=== PATIENT | female | born 1945 | race Caucasian/White ===

== ENCOUNTER 2024-09-13 10:07 | Observation (INO) ==
[2024-09-13 11:18] LABS: Basophils # (auto) 0.02 K/uL (0.00-0.20); Basophils % (auto) 0.2 %; Eosinophils # (auto) 0.02 K/uL (0.00-0.50); Eosinophils % (auto) 0.2 %; Hematocrit (blood only) 41.3 % (37.0-47.0); Hemoglobin 14.1 g/dl (12.0-16.0); Immature Granulocytes # (auto) 0.02 K/uL (0.01-0.20); Immature Granulocytes % (auto) 0.2 %; Lymphocytes % (auto) 17.4 %; Mean Corpuscular Hemoglobin 31.3 pg (25.0-34.0); Mean Corpuscular Hgb Conc 34.1 g/dL (32.0-36.0); Mean Corpuscular Volume 91.6 fL (80.0-100.0); Mean Platelet Volume 9.9 fL (9.4-12.4); Monocytes # (auto) 0.84 K/uL (0.11-0.59); Monocytes % (auto) 9.7 %; Neutrophils # (auto) 6.22 K/uL (1.40-6.50); Neutrophils % (auto) 72.3 %; Platelet Count 193 K/uL (130-400); RDW Coefficient of Variation 13.1 % (11.5-14.5); RDW Standard Deviation 44.2 fL (36.4-46.3); Red Blood Count 4.51 M/uL (4.20-5.40); White Blood Count 8.62 K/ul (4.8-10.8)
[2024-09-13 11:32] LABS: BUN Creatinine Ratio 13.6 (10-20); Bilirubin Direct 0.1 mg/dl (0-0.2); Bilirubin,Total 0.6 mg/dl (0.2-1.0); Calcium 9.5 mg/dl (8.6-10.3); Creatinine Clr Calc Pharmacy 22.9 ml/min; Potassium 3.8 mmol/L (3.5-5.1); Total Protein 7.3 gm/dl (6.0-8.3)
[2024-09-13 11:47] LABS: INR 0.9 (0.9-1.1); Partial Thromboplastin Ratio 0.9; Partial Thromboplastin Time 23 Seconds (21-31); Prothrombin Time 10.3 Seconds (9.0-12.0)
[2024-09-13] MEDS: OPTIRAY 320 100ml IV ONE (12:19)
[2024-09-13] MEDS: SODIUM CHLORIDE 0.9% 500 ML IV SCH (12:34)
[2024-09-13] MEDS: PANTOprazole 80 MG in DEXTROSE 5% 100 ML IV ONE (12:34)
--- NOTE | 2024-09-13 12:46 | CT Scan Report ---
ABDOMEN AND PELVIS CT WITH IV CONTRAST CT DOSE: 360.48 mGy.cm HISTORY: abd pain TECHNIQUE: Multiaxial CT images of the abdomen and pelvis were performed following the IV administrat ion of 90 cc of Optiray, A dose lowering technique was utilized adhering to the principles of ALARA. COMPARISON STUDY: None FINDINGS: There is a moderate hiatal hernia. There is a 6 mm pulmonary nodule lateral left lung base. ABDOMEN: Liver, gallbladder, spleen, pancreas, and adrenal glands are unremarkable. There are a few s mall cysts at the kidneys. There is no hydronephrosis. There are scattered atherosclerotic calcificat ions. No abdominal aortic aneurysm. Pelvis: Uterus is absent. No adnexal mass. Urinary bladder is nondistended. There is sigmoid divertic ulosis. No acute diverticulitis. There is diffuse wall thickening and inflammation at the left colon. No other bowel and summation or obstruction. Normal appendix. No free fluid, free air, or abscess. N o enlarged adenopathy. Osseous structures: There is mild lumbar degenerative disc disease with grade 1 anterolisthesis of L4 on 5 and L5 on S1. There is moderate chronic appearing height loss at the L1 vertebral body. No acut e osseous finding seen. IMPRESSION: 1. Diffuse left-sided colitis. No other acute findings seen. 2. Left lung base pulmonary nodule. Follow-up chest CT is suggested. ACT 112: Positive. There are findings on this exam that require communication between the performing entity and the patient following Patient Test Result Information Act ([place] Act 112) guidelines. The above report was generated using voice recognition software. It may contain grammatical, syntax o r spelling errors. Electronically signed by: Aníbal Carballo M.D. 09/13/2024 12:43 PM
[2024-09-13] MEDS: PANTOprazole 40 MG in DEXTROSE 5% MINI-B 100 ML IV SCH (13:01)
--- NOTE | 2024-09-13 13:14 | History & Physical Report ---
"Date of Service September 13, 2024 History of Present Illness Chief Complaint: rectal bleed Primary Care Provider: Magdalene Bernard MD Aby is a 79F with a PMHx of mild cognitive impairments, Internal hemorrhoid , CKD3, HTN, HLD and gout who presents with rectal bleeding. States yesterday afternoon sudden onset of sick feeling, went to the bathroom and had vomiting and diarrhea. Reports vomiting was dark brown. Stool was also dark, like black and then after multiple bouts of diarrhea she was passing clots. Meal before this was roast beef, gravy, potatoes and coleslaw. After this episode, she reports a rash all over her body neck/stomach/groin - that was very itchy, but completely resolved with benadryl. She reports chronic constipation and hx of treatment to her internal hemorrhoids. has not taken Pepto bismol recently or iron supplements. ED course: Protoninx 80mg IV followed by drip NSS 500cc Aby is a 79F with a PMHx of mild cognitive impairments, Internal hemorrhoid, CKD3, HTN, HLD and gout who presents with rectal bleeding. Initial evaluation showed stable hgb at 14.[address] A/P showed left sided colitis. # Possible GI Bleed | Colitis Suspect infectious vs ischemic Stool studies / C.diff / fecal occult, ordered, pending Strict NPO with IVF resuscitation Continue protonix drip started in the ED check orthostatic vital signs GI consulted Recheck hgb this evening AM CBC and BMP # CKD3 Cr slightly above baseline IVFs as above AM BMP # HTN | HLD Hold Aspirin Statin held while NPO continue atenolol and amlodipine #Lung nodule - seen on CT A/P - recommend chest CT, this can be done outpatient #Cognitive Impairment - Memantine held while NPO Dispo: admit to med/surg DVT proh: SCDs CODE STATUS: DNR/DNI daughter updated at bedside Allergies Allergy/AdvReac Type Severity Reaction Status Date / Time No Known Allergies Allergy Verified 09/11/24 16:02 Home Medications Medication Instructions Recorded Confirmed Type aspirin 81 mg tablet,delayed 81 mg PO DAILY 06/03/23 09/13/24 History release calcium carbonate 600 mg PO DAILY 06/03/23 09/13/24 History cholecalciferol (vitamin D3) 25 25 mcg PO DAILY 06/03/23 09/13/24 History mcg (1,000 unit) capsule omega-3s 350 ea-orz-hjj-other 1 cap PO DAILY 06/03/23 09/13/24 History [id number]-hdrl oil 600 mg capsule (Fish Oil) denosumab 60 mg/mL subcutaneous 60 mg subcut Q6MO #1 mL 01/23/24 09/13/24 Rx syringe (Prolia) meclizine 25 mg tablet 25 mg PO BID #30 tabs 03/22/24 09/13/24 Rx amlodipine 5 mg tablet 5 mg PO BID #180 tabs 08/10/24 09/13/24 Rx atenolol 100 mg tablet 100 mg PO DAILY #90 tabs 08/10/24 09/13/24 Rx pravastatin 20 mg tablet 20 mg PO DAILY #90 tabs 08/10/24 09/13/24 Rx memantine 5 mg tablet 0 mg PO BID 09/13/24 09/13/24 History pantoprazole 40 mg tablet,delayed 40 mg PO BID #28 tabs 09/15/24 Rx release Past Med/Surg History Problem List (Updated 09/15/24 @ 06:28 by Yann Salazar MD) Chronic kidney disease, stage 3a PAOLO (acute kidney injury) Colitis GI bleed (Acute) Mild cognitive impairment Systolic ejection murmur Internal hemorrhoid Stage III chronic kidney disease HTN (hypertension) HLD (hyperlipidemia) Osteoporosis Gout Left bundle branch block Medical History History of paroxysmal supraventricular tachycardia Family History Mother Breast cancer Hypertension Myocardial infarction Sister Breast cancer Cervical cancer Brother Lung cancer Bladder cancer Denies family history of Ovarian cancer Prostate cancer Colorectal cancer Stroke Social History Smoking Status: Never smoker Second Hand Exposure: No; Do You Dip or Chew Tobacco: No; Hx Alcohol Use: No Hx Substance Use: No Preferred Language: Maltese Communication Ability: Effective Instructional Assistant Required: No Beliefs That Will Affect Care: None marital status: / Current Living Situation: Family Current Living Situation Comment: Lives with daughter 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 I agree with the yao components of her admit documentation. 79yo female with mild cognitive impairment, internal hemorrhoids, CKD stage3, HTN, Hyperlipidemia and gout who presents from home with <24 hours of vomiting, left-sided abd pain, ?melena stool, and then the development of BRBPR with clots. At the time of my assessment she was resting comfortably in bed; daughter at bedside. Abdominal pain has improved since arrival to ER, and no further vomiting. ER provider started her on PPI drip in the event she had UGI bleeding (in addition to lower GI bleeding). Patient denies any recent antibiotic usage. Denies any h/o tobacco use. PMH/PSH/allergies/meds/sochx/famhx - reviewed VSS, afebrile gen - nontoxic in appearance, comfortable/NAD, awake, alert neck - no JVD mouth - MMM heart - RRR, s1 s2, no murmur lungs - CTA b/l, minimal scant dry rales R base abd - soft, ND, BS+, tender left side of abdomen but no peritoneal signs ext - no edema, pulses 2+ b/l skin - no pallor psych - awake, alert, oriented; despite MCI her cognition was fairly good labs reviewed imaging reviewed A/P: 1. left-sided colitis - ischemic vs infectious. Favor former. No diverticulitis on CT. No h/o IBD. -stool Biofire and stool for c diff -NPO except meds -IV fluids -pain meds prn -GI consultation requested for their opinion -if this turns out to be ischemic consider mesenteric dopplers -H/H are stable at this time, but plan to repeat CBC later today to ensure stability -ischemic colitis risk factors - HTN, age, hyperlipidemia 2. lower GI bleeding - 2nd to #1 3. ??upper GI bleeding (dark stool reported by patient) - I have little suspicion she is having active UGI bleed, but reasonable to cont PPI drip instituted in ER until her CBC trend is seen and rest of w/u ensues 4. HTN - BPs are actually normal or low-normal; hold amlodipine, cont atenolol. daughter updated at bedside at time of admission Yann Salazar MD PG Care Time/CCT Total # of Minutes Spent Total Time Spent with Patient: Total time spent is greater than 50% in coordination of care (as documented) at patient's floor/unit and/or counseling patient: Coding Level of Care Code 60221 INT INP/OBS CARE 3MIN"
[2024-09-13] MEDS ORDERED: ONDANSETRON INJ 2 MG/ML 2 ML VIAL IV PRN (16:47)
[2024-09-13] MEDS ORDERED: ACETAMINOPHEN 1,000 MG/100 ML VIAL IV PRN (16:47)
--- NOTE | 2024-09-13 17:10 | Emergency Department Note ---
History of Present Illness General Chief complaint: Rectal Bleed Stated complaint: RECTAL BLEED Time Seen by Provider: 09/13/24 11:05 Source: patient and family (Daughter at bedside) History of Present Illness Provider Complaint: + nausea, + vomiting, + diarrhea and + abdominal pain Onset (ago): day(s) 1 Description of Vomiting: + other (Dark vomit not truly black but very very dark) Description of Diarrhea: + blood-streaked and + bloody (bright red) Associated Abdominal Pain: Yes Location of pain: + diffuse Maximum Pain Intensity: 5 Current Pain Intensity: 5 Quality: + cramping and + aching Pain Consistency: + intermittent Relieved By: + none Exacerbated By: + bowel movement and + vomiting Context: + possible food poisoning (Occurred after eating at a restaurant last night); no sick contacts, no recent surgery/procedure, no history of abdominal surgery, no alcohol abuse, no trauma, no anticoagulant use or no self induced Associated symptoms: + other (Rash over the anterior abdominal wall which the daughter at bedside states she gave the patient Benadryl for and then the rash resolved.); no myalgias, no fever/chills, no malaise, no dysuria or no weakness Home Medications Medication Instructions Recorded Confirmed Type aspirin 81 mg tablet,delayed 81 mg PO DAILY 06/03/23 09/13/24 History release calcium carbonate 600 mg PO DAILY 06/03/23 09/13/24 History cholecalciferol (vitamin D3) 25 25 mcg PO DAILY 06/03/23 09/13/24 History mcg (1,000 unit) capsule omega-3s 350 zl-dfa-yhw-other 1 cap PO DAILY 06/03/23 09/13/24 History [id number] oil 600 mg capsule (Fish Oil) denosumab 60 mg/mL subcutaneous 60 mg subcut Q6MO #1 mL 01/23/24 09/13/24 Rx syringe (Prolia) meclizine 25 mg tablet 25 mg PO BID #30 tabs 03/22/24 09/13/24 Rx amlodipine 5 mg tablet 5 mg PO BID #180 tabs 08/10/24 09/13/24 Rx atenolol 100 mg tablet 100 mg PO DAILY #90 tabs 08/10/24 09/13/24 Rx pravastatin 20 mg tablet 20 mg PO DAILY #90 tabs 08/10/24 09/13/24 Rx memantine 5 mg tablet 0 mg PO BID 09/13/24 09/13/24 History Allergies Allergy/AdvReac Type Severity Reaction Status Date / Time No Known Allergies Allergy Verified 09/11/24 16:02 Past Med/Surg History Problem List (Updated 09/13/24 @ 17:10 by Osvaldo Martinez MD) GI bleed (Acute) Mild cognitive impairment Systolic ejection murmur Internal hemorrhoid Stage III chronic kidney disease HTN (hypertension) HLD (hyperlipidemia) Osteoporosis Gout Left bundle branch block Medical History History of paroxysmal supraventricular tachycardia Family History Mother Breast cancer Hypertension Myocardial infarction Sister Breast cancer Cervical cancer Brother Lung cancer Bladder cancer Denies family history of Ovarian cancer Prostate cancer Colorectal cancer Stroke Social History Smoking Status: Never smoker Second Hand Exposure: No; Do You Dip or Chew Tobacco: No; Hx Alcohol Use: Yes Alcohol Intake Frequency: Monthly or Less Hx Substance Use: No Preferred Language: Serbian Beliefs That Will Affect Care: None marital status: / Current Living Situation: Family Current Living Situation Comment: Lives with daughter 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 Feels Safe at Home: Yes Childhood Exposure to Second-Hand Smoke: No Diet: regular caffeine: Yes Dental Care, Regularly: No Seatbelt Use: always Sunscreen Use: No Assistive Devices: Glasses Physical Exam 2 Vital Signs: Vital Signs - 24 hr 09/13/24 10:19 09/13/24 12:30 09/13/24 14:00 Temperature 36.7 C Temperature Source Temporal Artery Sc an Pulse Rate 83 71 Pulse Rate [Apical ] 68 Respiratory Rate 14 20 18 Blood Pressure 116/77 130/81 Blood Pressure [Le ft Arm] 131/77 Blood Pressure Yelena n 90 97 Blood Pressure Yelena n [Left Arm] 95 Pulse Oximetry 93 94 92 Oxygen Delivery Me thod Room Air Room Air Sepsis New/Unexpla ined Change in Men tommie Status No Sepsis Action Take n by Nursing No Action Required 09/13/24 15:00 09/13/24 15:52 Temperature Temperature Source Pulse Rate 73 Pulse Rate [Apical ] 66 Respiratory Rate 16 Blood Pressure Blood Pressure [Le ft Arm] 121/73 Blood Pressure Yelena n Blood Pressure Yelena n [Left Arm] 89 Pulse Oximetry 93 Oxygen Delivery Me thod Room Air Sepsis New/Unexpla ined Change in Men tommie Status Sepsis Action Take n by Nursing Physical Exam: Physical Exam GENERAL: oriented to person, place, and time. appears well-developed and well- nourished. HENT: Exam performed. - Head: Normocephalic and atraumatic. EYES: Conjunctivae and EOM are normal. Right eye exhibits no discharge. Left eye exhibits no discharge. No scleral icterus. NECK: Normal range of motion. Neck supple. No JVD present. CV: Normal rate, regular rhythm, normal heart sounds and intact distal pulses. There is no peripheral edema. Palpable radial pulses bue. PULM/CHEST: Effort normal and breath sounds normal. No respiratory distress. No stridor. no wheezes. no rales. ABD: The abdomen is soft. There is diffuse tenderness to palpation. Rectal: Performed with female nursing temperature inspector Tabatha at bedside. Melanotic stool that is Hemoccult positive. NEURO: Motor and sensation grossly intact. SKIN: Skin is warm and dry. He is not diaphoretic. No rash. PSYCH: normal mood and affect. Behavior is normal. Judgment and thought content normal. Course Course 1105: The patient was evaluated in room B10. A complete history and physical exam was performed Cardiac monitoring: An order was placed for continuous cardiac monitoring. The monitor shows a rate of 80 with sinus rhythm interpreted by me Patient be turned on Protonix bolus and drip given her Hemoccult positive stool and her dark vomit that she states she had yesterday. 1320: Vital signs stable. Labs are unremarkable. Imaging shows colitis. Patient unable to give stool sample. Patient will be admitted to the hospitalist team for GI bleed. Administered Medications Sodium Chloride (Nss) 500 mls @ 80 mls/hr IV .Q6H15M [facility] Stop: 09/13/24 17:44 Last Infusion: 09/13/24 15:00 Dose: Infused Documented By: Admin: 09/13/24 12:34 Dose: 80 mls/hr Documented By: Pantoprazole Sodium 40 mg/ (Dextrose) 100 mls @ 20 mls/hr IV Q5H [facility] Stop: 10/13/24 11:44 Last Admin: 09/13/24 13:01 Dose: 8 mg/hr, 20 mls/hr Documented By: MR Discontinued Medications Pantoprazole Sodium 80 mg/ (Dextrose) 120 mls @ 480 mls/hr IV NOW ONE Stop: 09/13/24 11:36 Last Infusion: 09/13/24 15:00 Dose: Infused Documented By: Admin: 09/13/24 12:34 Dose: 480 mls/hr Documented By: Ioversol (Optiray 320 100ml) 92 ml IV ONCE ONE Stop: 09/13/24 12:20 Last Admin: 09/13/24 12:19 Dose: 92 ml Documented By: ROLANDK Medical Decision Making Laboratory Data Attestation: I reviewed the patient's lab results. 09/13/24 11:04 09/13/24 11:04 Lab Results 09/13/24 09/13/24 Range/Units 11:04 12:07 WBC 8.62 (4.8-10.8) K/ul RBC 4.51 (4.20-5.40) M/uL Hgb 14.1 (12.0-16.0) g/dl Hct 41.3 (37.0-47.0) % MCV 91.6 (80.0-100.0) fL MCH 31.3 (25.0-34.0) pg MCHC 34.1 (32.0-36.0) g/dL RDW Std Deviation 44.2 (36.4-46.3) fL RDW Coeff of Leah 13.1 (11.5-14.5) % Plt Count 193 (130-400) K/uL MPV 9.9 (9.4-12.4) fL Immature Gran % (Auto) 0.2 % Neut % (Auto) 72.3 % Lymph % (Auto) 17.4 % Hand % (Auto) 9.7 % Eos % (Auto) 0.2 % Baso % (Auto) 0.2 % Neut # (Auto) 6.22 (1.40-6.50) K/uL Lymph # (Auto) 1.50 (1.20-3.40) K/uL Hand # (Auto) 0.84 H (0.11-0.59) K/uL Eos # (Auto) 0.02 (0.00-0.50) K/uL Baso # (Auto) 0.02 (0.00-0.20) K/uL Immature Gran # (Auto) 0.02 (0.01-0.20) K/uL PT 10.3 (9.0-12.0) Seconds INR 0.9 (0.9-1.1) APTT 23 (21-31) Seconds PTT Ratio 0.9 Sodium 142 (136-145) mmol/L Potassium 3.8 (3.5-5.1) mmol/L Chloride 107 (98-107) mmol/L Carbon Dioxide 29 (21-32) mmol/L Anion Gap 6 (3-11) BUN 17 (6-23) mg/dl Creatinine 1.25 H (0.6-1.2) mg/dl Est Cr Clr Drug Dosing 22.9 ml/min eGFR 43.84 BUN/Creatinine Ratio 13.6 (10-20) Glucose 97 (70-99(Fasting)) mg/dl Calcium 9.5 (8.6-10.3) mg/dl Total Bilirubin 0.6 (0.2-1.0) mg/dl Direct Bilirubin 0.1 (0-0.2) mg/dl AST 22 (13-39) U/L ALT 11 (7-52) U/L Alkaline Phosphatase 48 (34-104) U/L Total Protein 7.3 (6.0-8.3) gm/dl Albumin 4.3 (3.4-5.0) gm/dl Lipase 25 (11-82) U/L Blood Type O Positive Antibody Screen NEGATIVE Imaging Data Radiologist's Impression: Abdomen/Pelvis CT 09/13/24 11:[address] WITH IV CONTRAST CT DOSE: 360.48 mGy.cm HISTORY: abd pain TECHNIQUE: Multiaxial CT images of the abdomen and pelvis were performed following the IV administration of 90 cc of Optiray, A dose lowering technique was utilized adhering to the principles of ALARA. COMPARISON STUDY: None FINDINGS: There is a moderate hiatal hernia. There is a 6 mm pulmonary nodule lateral left lung base. ABDOMEN: Liver, gallbladder, spleen, pancreas, and adrenal glands are unremarkable. There are a few small cysts at the kidneys. There is no hydronephrosis. There are scattered atherosclerotic calcifications. No abdominal aortic aneurysm. Pelvis: Uterus is absent. No adnexal mass. Urinary bladder is nondistended. There is sigmoid diverticulosis. No acute diverticulitis. There is diffuse wall thickening and inflammation at the left colon. No other bowel and summation or obstruction. Normal appendix. No free fluid, free air, or abscess. No enlarged adenopathy. Osseous structures: There is mild lumbar degenerative disc disease with grade 1 anterolisthesis of L4 on 5 and L5 on S1. There is moderate chronic appearing height loss at the L1 vertebral body. No acute osseous finding seen. IMPRESSION: 1. Diffuse left-sided colitis. No other acute findings seen. 2. Left lung base pulmonary nodule. Follow-up chest CT is suggested. ACT 112: Positive. There are findings on this exam that require communication between the performing entity and the patient following Patient Test Result Information Act ([place] Act 112) guidelines. The above report was generated using voice recognition software. It may contain grammatical, syntax or spelling errors. Electronically signed by: Aníbal Carballo M.D. 09/13/2024 12:43 PM [facility] Narrative 1105: The patient was evaluated in room B10. A complete history and physical exam was performed Cardiac monitoring: An order was placed for continuous cardiac monitoring. The monitor shows a rate of 80 with sinus rhythm interpreted by me Patient be turned on Protonix bolus and drip given her Hemoccult positive stool and her dark vomit that she states she had yesterday. 1320: Vital signs stable. Labs are unremarkable. Imaging shows colitis. Patient unable to give stool sample. Patient will be admitted to the hospitalist team for GI bleed. Impression & Plan GI bleed Discharge Plan Visit Data Chief Complaint: Rectal Bleed Stated Complaint: RECTAL BLEED ED Provider: Osvaldo Martinez Discharge Problem: GI bleed Patient Disposition: Admitted As Inpatient Condition: Fair Discharge Instructions Interventions: ED Discharge Assessment Last Done: 09/13/24 16:48
[2024-09-13] MEDS: PANTOPRAZOLE BOLUS/DRIP IV STA (17:31)
[2024-09-13] MEDS: SODIUM CHLORIDE 0.9% 1,000 ML IV SCH (17:38)
[2024-09-13 19:07] LABS: Hematocrit (blood only) 36.2 % (37.0-47.0); Hemoglobin 12.6 g/dl (12.0-16.0); Mean Corpuscular Hemoglobin 31.7 pg (25.0-34.0); Mean Corpuscular Hgb Conc 34.8 g/dL (32.0-36.0); Platelet Count 160 K/uL (130-400); RDW Coefficient of Variation 13.2 % (11.5-14.5); RDW Standard Deviation 43.8 fL (36.4-46.3); Red Blood Count 3.98 M/uL (4.20-5.40); White Blood Count 8.34 K/ul (4.8-10.8)
[2024-09-13] MEDS: amLODIPine BESYLATE 5 MG TAB PO SCH (21:24)
[2024-09-14 07:40] LABS: Hemoglobin 12.6 g/dl (12.0-16.0); Mean Corpuscular Hemoglobin 32.4 pg (25.0-34.0); Mean Corpuscular Volume 92.5 fL (80.0-100.0); Mean Platelet Volume 10.1 fL (9.4-12.4); Platelet Count 154 K/uL (130-400); RDW Coefficient of Variation 13.5 % (11.5-14.5); RDW Standard Deviation 45.9 fL (36.4-46.3); Red Blood Count 3.89 M/uL (4.20-5.40); White Blood Count 6.78 K/ul (4.8-10.8)
[2024-09-14 07:58] LABS: BUN Creatinine Ratio 9.9 (10-20); Calcium 8.1 mg/dl (8.6-10.3); Creatinine Clr Calc Pharmacy 31.5 ml/min; Potassium 3.4 mmol/L (3.5-5.1)
[2024-09-14] MEDS: POTASSIUM CHLORIDE / WTR 10 MEQ/100 ML PLCT IV SCH (09:07)
[2024-09-14] MEDS: ATENOLOL 50 MG TABLET PO SCH (09:08)
--- NOTE | 2024-09-14 11:11 | Gastrointestinal Consultation ---
Date of Consultation September 14, 2024 Assessment & Plan (1) GI bleed: Plan Patient with sudden onset of diarrhea with rectal bleeding. CT scan shown diffuse left sided colitis. possibly infectious vs inflammatory in nature. she admits to an episode similar to this a few years back. symptoms seem to be subsiding. - continue to follow hgb/hct. transfuse as needed. - stool studies are pending but it seems diarrhea has resolved. - she will need eventual colonoscopy to evaluate. will discuss timing with . - will discuss case further with Dr. Butcher, further recommendations to follow. Supervising Physician Co-Signing Physician Notes Reviewed. Patient examined. Likely self-limited ischemic colitis. Previous history of this disorder. Stool studies ordered and pending advance diet if tolerated can be discharged. Patient can consider outpatient colonoscopy which she would like to proceed. If further nausea vomiting abdominal pain or significant bleeding this could be done as an inpatient. History of Present Illness Reason for Consultation: ?GIB Requesting Physician: Yelena MORGAN Attending Physician: Yann Salazar MD History of Present Illness Patient is a 79 year old female with a past medical history of mild cognitive impairments, internal hemorrhoid, CKD3, HTN, HLD, and gout who presented to the ED on 09/13/24 with complaints of rectal bleeding. She states that she was out to eat on Saturday with her family for a meal for Mothers day and when she went home she developed sudden nausea, vomiting, and diarrhea. Reports vomiting was dark brown. Stool was also dark and she had multiple bouts of diarrhea where she was passing clots. She had CT suggestive of diffuse left sided colitis. hgb on arrival was 14.1. She tells me that since admission, her symptoms have seemingly resolved. no further rectal bleeding. she tells me that she had an episode of this several years ago that also resolved on its own. she last had a colonoscopy done about 7 years ago in [place]. I do not have these records, but she tells me that she is overdue as she had been advised to have in 5 years given personal history of polyps. The remainder of the GI ROS were unremarkable. CT 09/13/24 Diffuse left-sided colitis. No other acute findings seen. Left lung base pulmonary nodule. Follow-up chest CT is suggested. Allergies Allergy/AdvReac Type Severity Reaction Status Date / Time No Known Allergies Allergy Verified 09/11/24 16:02 Home Medications Medication Instructions Recorded Confirmed Type aspirin 81 mg tablet,delayed 81 mg PO DAILY 06/03/23 09/13/24 History release calcium carbonate 600 mg PO DAILY 06/03/23 09/13/24 History cholecalciferol (vitamin D3) 25 25 mcg PO DAILY 06/03/23 09/13/24 History mcg (1,000 unit) capsule omega-3s 350 [id number] 1 cap PO DAILY 06/03/23 09/13/24 History [id number] oil 600 mg capsule (Fish Oil) denosumab 60 mg/mL subcutaneous 60 mg subcut Q6MO #1 mL 01/23/24 09/13/24 Rx syringe (Prolia) meclizine 25 mg tablet 25 mg PO BID #30 tabs 03/22/24 09/13/24 Rx amlodipine 5 mg tablet 5 mg PO BID #180 tabs 08/10/24 09/13/24 Rx atenolol 100 mg tablet 100 mg PO DAILY #90 tabs 08/10/24 09/13/24 Rx pravastatin 20 mg tablet 20 mg PO DAILY #90 tabs 08/10/24 09/13/24 Rx memantine 5 mg tablet 0 mg PO BID 09/13/24 09/13/24 History Patient History Medical History History of paroxysmal supraventricular tachycardia Family History Mother Breast cancer Hypertension Myocardial infarction Sister Breast cancer Cervical cancer Brother Lung cancer Bladder cancer Denies family history of Ovarian cancer Prostate cancer Colorectal cancer Stroke Social History Smoking Status: Never smoker Second Hand Exposure: No; Do You Dip or Chew Tobacco: No; Hx Alcohol Use: No Hx Substance Use: No Preferred Language: Romansh Communication Ability: Effective Skidder Operator Required: No Beliefs That Will Affect Care: None marital status: / Current Living Situation: Family Current Living Situation Comment: Lives with daughter 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 Feels Safe at Home: Yes Safety Concerns: Feels Safe At This Time Childhood Exposure to Second-Hand Smoke: No Diet: regular caffeine: Yes Dental Care, Regularly: No Seatbelt Use: always Sunscreen Use: No Assistive Devices: None Review of Systems Review of Systems: All systems reviewed & are unremarkable except as noted in HPI & below Physical Exam Constitutional: WD/WN, vitals as above Respiratory: normal respiratory effort, lungs clear to auscultation Cardiovascular: Rate/Rhythm: regular rate and regular rhythm Gastrointestinal (Abdomen): normal bowel sounds, soft, nontender, no hepatosplenomegaly Psychiatric: Orientation: alert and oriented x 3 Affect: euthymic affect Results & Data Vital Signs (Past 12 Hours) Vital Signs Temp Pulse Resp BP Pulse Ox O2 Del Method 09/14/24 08:11 98.2 F 77 20 110/68 94 Room Air Coding Level of Care Code 26962 INT INP/OBS CARE 2/55MIN Diagnoses GI bleed K92.2
[2024-09-14] MEDS: hydrOXYzine HCl 25 MG TAB PO PRN (11:12)
--- NOTE | 2024-09-14 11:18 | Hospitalist Progress Note ---
Date of Service September 14, 2024 Assessment & Plan (1) Colitis: Plan: left-sided abd pain and other symptoms/signs already improved and/or resolved stool BioFire & c diff negative making infectious colitis unlikely the quick onset, blood per rectum, and the pattern of colitis on imaging suggest this was ischemic colitis that improved rather rapidly no evidence of diverticulitis on CT risk factors for ischemia - HTN, hyperlipidemia, anemia allow clear liquids cont IV fluids but reduce rate repeat labs in am GI consult appreciated; they, too, also feel that this was likely transient ischemic colitis will obtain mesenteric doppler study to check mesenteric arteries/flow (2) GI bleed: Plan: lower GI bleeding 2nd to #1 doubt that she ever had upper GI bleed has been on PPI drip since ER presentation can stop and convert to PO PPI no plans for EGD H/H are stable this am In fact hemoglobin this am is the same as last pm (3) HTN (hypertension): Plan: BPs have been low or low-normal since admission holding amlodipine cont atenolol resume aspirin at d/c (4) HLD (hyperlipidemia): Plan: can resume pravastatin at d/c (5) History of paroxysmal supraventricular tachycardia: Plan: noted cont atenolol (6) PAOLO (acute kidney injury): Plan: Cr 1.25 at admission now Cr 0.91 today 2nd to #1 (7) Chronic kidney disease, stage 3a: Plan: baseline GFR low 40s c/w stage 3a / borderline 3b CKD BMP am for stability Plan rash on back - likely contact dermatitis hydroxyzine prn itching triamcinolone cream 0.1% TID doing well home tomorrow? left message for pt's daughter on her voicemail 09/14/24 Admission and Anticipated Discharge Date Admission Date: September 13, 2024 Subjective left-sided abd pain has resolved no nausea or emesis has not had any stools since yesterday no blood per rectum overnight or this am she overall feels quite good denies any new complaints Review of Systems Review of Systems: gen - no fevers or chills cv - no chest pain pulm - no dyspnea skin - itchy rash on back - started this am Physical Exam Physical Exam: gen - NAD, looks well mouth - MMM neck - no JVD heart - RRR, s1 s2 lungs - CTA b/l abd - soft, NT, ND, BS+, no HSM, no peritoneal signs ext - no edema, pulses 2+ b/l psych - a/o x 3 skin - mild faint erythematous rash on central portion of back only; no other locations with rash Results & Data Results & Data Vital Signs (Past 12 Hours) Vital Signs Temp Pulse Resp BP Pulse Ox O2 Del Method 09/14/24 08:11 36.8 C 77 20 110/68 94 Room Air Laboratory Results Laboratory Results - last 24 hr 09/14/24 09/14/24 07:19 15:23 WBC 6.78 RBC 3.89 L Hgb 12.6 Hct 36.0 L MCV 92.5 MCH 32.4 MCHC 35.0 RDW Std Deviation 45.9 RDW Coeff of Leah 13.5 Plt Count 154 MPV 10.1 Sodium 144 Potassium 3.4 L Chloride 113 H Carbon Dioxide 27 Anion Gap 4 BUN 9 Creatinine 0.91 D Est Cr Clr Drug Dosing 31.5 eGFR 64.17 BUN/Creatinine Ratio 9.9 L Glucose 82 Calcium 8.1 L Stool Occult Bld Scrn Positive A Stl C. cayetanensis PCR Not Detected Stool Rotavirus A PCR Not Detected Stl Adenov F 40/41 PCR Not Detected Stool Astrovirus (PCR) Not Detected Stool Campylobacter PCR Not Detected Stl C. diff Tox B Gene Negative Cdiff Gene Stool Cryptosporidium PCR Not Detected Stl E.coli Shiga Tox PCR Not Detected Stl Enterotoxigenic E PCR Not Detected Stool EPEC (PCR) Not Detected Stool EAEC (PCR) Not Detected Stl E. histolytica PCR Not Detected Stool Giardia Lamblia PCR Not Detected Stool Salmonella PCR Not Detected Stool Sapovirus (PCR) Not Detected Stl P. shigelloides PCR Not Detected Stl Shigella/EIEC PCR Not Detected St Y.enterocolitica PCR Not Detected Stool Vibrio (PCR) Not Detected Stl Vibrio cholerae PCR Not Detected Stl Norovirus GI/GII PCR Not Detected PG Care Time/CCT Total # of Minutes Spent Total Time Spent with Patient: Total time spent is greater than 50% in coordination of care (as documented) at patient's floor/unit and/or counseling patient: Coding Level of Care Code 40577 SUB INP/OBS CARE 2/35MIN Diagnoses Colitis K52.9 GI bleed K92.2 HTN (hypertension) I10 HLD (hyperlipidemia) E78.5 History of paroxysmal supraventricular tachycardia Z86.79 PAOLO (acute kidney injury) N17.9 Chronic kidney disease, stage 3a N18.31
[2024-09-14] MEDS: TRIAMCINOLONE ACET 0.1% CR 15 GM TUBE EXT SCH (14:27)
[2024-09-14 16:54] LABS: Adenovirus F 40/41 PCR Not Detected (NotDetected); Astrovirus PCR Not Detected (NotDetected); Campylobacter PCR Not Detected (NotDetected); Cryptosporidium PCR Not Detected (NotDetected); Cyclospora cayetanensis PCR Not Detected (NotDetected); Entamoeba histolytica PCR Not Detected (NotDetected); Enteroaggregative E.coli(EAEC) Not Detected (NotDetected); Enteropathogenic E.coli (EPEC) Not Detected (NotDetected); Enterotoxigenic E.coli (ETEC) Not Detected (NotDetected); Giardia lamblia PCR Not Detected (NotDetected); Norovirus GI/GII PCR Not Detected (NotDetected); Plesiomonas shigelloides PCR Not Detected (NotDetected); Rotavirus A PCR Not Detected (NotDetected); Salmonella PCR Not Detected (NotDetected); Sapovirus PCR Not Detected (NotDetected); Shiga-like Toxin E.coli (STEC) Not Detected (NotDetected); Shigella/Enteroinvasive E.coli Not Detected (NotDetected); Vibrio cholerae PCR Not Detected (NotDetected); Vibrio species PCR Not Detected (NotDetected); Yersinia enterocolitica PCR Not Detected (NotDetected)
[2024-09-15 07:06] VITALS: BP 120/77; PULSE 66; RESP 16; TEMP 97.7; O2SAT 94
[2024-09-15 08:10] LABS: Hematocrit (blood only) 38.6 % (37.0-47.0); Hemoglobin 13.3 g/dl (12.0-16.0); Mean Corpuscular Hemoglobin 31.6 pg (25.0-34.0); Mean Corpuscular Hgb Conc 34.5 g/dL (32.0-36.0); Mean Corpuscular Volume 91.7 fL (80.0-100.0); Mean Platelet Volume 10.3 fL (9.4-12.4); Platelet Count 167 K/uL (130-400); RDW Coefficient of Variation 13.2 % (11.5-14.5); RDW Standard Deviation 45.1 fL (36.4-46.3); Red Blood Count 4.21 M/uL (4.20-5.40); White Blood Count 5.87 K/ul (4.8-10.8)
--- NOTE | 2024-09-15 08:10 | Hospitalist Progress Note ---
Date of Service September 15, 2024 Assessment & Plan (1) Colitis: Plan: left-sided abd pain and other symptoms/signs already improved and/or resolved stool BioFire & c diff negative making infectious colitis unlikely the quick onset, blood per rectum, and the pattern of colitis on imaging suggest this was ischemic colitis that improved rather rapidly no evidence of diverticulitis on CT risk factors for ischemia - HTN, hyperlipidemia, anemia allow clear liquids cont IV fluids but reduce rate repeat labs in am GI consult appreciated; they, too, also feel that this was likely transient ischemic colitis will obtain mesenteric doppler study to check mesenteric arteries/flow (2) GI bleed: Plan: lower GI bleeding 2nd to #1 doubt that she ever had upper GI bleed has been on PPI drip since ER presentation can stop and convert to PO PPI no plans for EGD H/H are stable this am In fact hemoglobin this am is the same as last pm (3) HTN (hypertension): Plan: BPs have been low or low-normal since admission holding amlodipine cont atenolol resume aspirin at d/c (4) HLD (hyperlipidemia): Plan: can resume pravastatin at d/c (5) History of paroxysmal supraventricular tachycardia: Plan: noted cont atenolol (6) PAOLO (acute kidney injury): Plan: Cr 1.25 at admission now Cr 0.91 today 2nd to #1 (7) Chronic kidney disease, stage 3a: Plan: baseline GFR low 40s c/w stage 3a / borderline 3b CKD BMP am for stability Plan rash on back - likely contact dermatitis hydroxyzine prn itching triamcinolone cream 0.1% TID doing well home tomorrow? left message for pt's daughter on her voicemail 09/14/24 Admission and Anticipated Discharge Date Admission Date: September 14, 2024 Results & Data Results & Data Vital Signs (Past 12 Hours) Vital Signs Temp Pulse Resp BP Pulse Ox O2 Del Method 09/15/24 07:04 36.5 C 66 16 120/77 94 Room Air PG Care Time/CCT Total # of Minutes Spent Total Time Spent with Patient: Total time spent is greater than 50% in coordination of care (as documented) at patient's floor/unit and/or counseling patient: Coding Diagnoses Colitis K52.9 GI bleed K92.2 HTN (hypertension) I10 HLD (hyperlipidemia) E78.5 History of paroxysmal supraventricular tachycardia Z86.79 PAOLO (acute kidney injury) N17.9 Chronic kidney disease, stage 3a N18.31
--- NOTE | 2024-09-15 08:27 | Ultrasound Report ---
US duplex mesenteric CLINICAL HISTORY: suspected L sided ischemic colitis COMPARISON STUDY: CT of 09/13/2024 FINDINGS: There is no abdominal aortic aneurysm and the visualized abdominal aorta is widely patent. Celiac and superior mesenteric arteries are widely patent with no increased velocity to suggest signi ficant narrowing. Waveforms are normal. Inferior mesenteric artery is patent. IMPRESSION: No mesenteric artery stenosis seen. ACT 112: Negative or not required by law. Electronically signed by: Aníbal Carballo M.D. 09/15/2024 8:25 AM
[2024-09-15] MEDS: PANTOprazole 40 MG TAB PO SCH (08:28)
[2024-09-15 08:46] LABS: BUN Creatinine Ratio 10.5 (10-20); Calcium 8.5 mg/dl (8.6-10.3); Creatinine Clr Calc Pharmacy 30.1 ml/min; Magnesium 2.1 mg/dl (1.7-2.4); Potassium 3.6 mmol/L (3.5-5.1)
--- NOTE | 2024-09-15 09:32 | Discharge Summary ---
Discharge Summary Date of Service September 15, 2024 Principal Dx & Hospital Course #1 = Principal Diagnosis (1) Colitis: 79F with a PMHx of mild cognitive impairments, Internal hemorrhoid, CKD3, HTN, HLD and gout who presents with rectal bleeding. Reported sudden onset of feeling ill, going to the bathroom with vomiting/diarrhea and multiple bouts of diarrhea with clots. CTAP noting diffuse LEFT sided colitis. no evidence of diverticulitis on CT risk factors for ischemia - HTN, hyperlipidemia, anemia Stool biofire, cdiff negative making infectious colitis unlikely GI was consulted and IVF provided and hgb remained stable. No need for IV abx and diet advanced to clears--> fulls--> low fiber and no abdominal pain/further bleeding and ok per GI for dc. Ref to GI for outpt scope w/ navigator sent as was told "to get in 5 yrs 2nd to polyps" Return sx discussed. Also obtained mesenteric US to ensure no stenosis and was negative. * note L lung base nodule, can f/u CT chest w/ PCP (2) GI bleed: Suspected lower GI bleeding, 2nd to above. doubtful upper GI but had been on PPI gtt since presentation and was converted to PO BID 09/14 and continued x 2 wks at dc but suspect could be discontinued altogether given suspect ischemic colitis, resolved without escalation of care No plans for EGD, ok for dc per GI w/ outpt GI f/u for c-scope as discussed as is overdue (3) HTN (hypertension): BPs have been low or low-normal since admission and held amlodipine but continued on atenolol. BP stable 120/77 and improvement in PO and can resume amlodpine at dc. F/u PCP (4) HLD (hyperlipidemia): can resume pravastatin at d/c (5) History of paroxysmal supraventricular tachycardia: noted, remained on atenolol. no issues (6) PAOLO (acute kidney injury): Cr 1.25 at admission, IVF for above and Cr normalized/remained normal w/o IVF (7) Chronic kidney disease, stage 3a: baseline GFR low 40s c/w stage 3a / borderline 3b CKD Notes For Next Care Provider Consider GI ref for cscope as overdue Monitor for any increased pain/bleeding but no issues w/ advancement to low fiber Medication Changes From Visit Protonix twice daily for 2 weeks, can dc if no issues Admission HPI Per Admitting Provider Aby is a 79F with a PMHx of mild cognitive impairments, Internal hemorrhoid, CKD3, HTN, HLD and gout who presents with rectal bleeding. States yesterday afternoon sudden onset of sick feeling, went to the bathroom and had vomiting and diarrhea. Reports vomiting was dark brown. Stool was also dark, like black and then after multiple bouts of diarrhea she was passing clots. Meal before this was roast beef, gravy, potatoes and coleslaw. After this episode, she reports a rash all over her body neck/stomach/groin - that was very itchy, but completely resolved with benadryl. She reports chronic constipation and hx of treatment to her internal hemorrhoids. has not taken Pepto bismol recently or iron supplements. ED course: Protoninx 80mg IV followed by drip NSS 500cc Aby is a 79F with a PMHx of mild cognitive impairments, Internal hemorrhoid, CKD3, HTN, HLD and gout who presents with rectal bleeding. Initial evaluation showed stable hgb at 14.[address] A/P showed left sided colitis. # Possible GI Bleed | Colitis Suspect infectious vs ischemic Stool studies / C.diff / fecal occult, ordered, pending Strict NPO with IVF resuscitation Continue protonix drip started in the ED check orthostatic vital signs GI consulted Recheck hgb this evening AM CBC and BMP # CKD3 Cr slightly above baseline IVFs as above AM BMP # HTN | HLD Hold Aspirin Statin held while NPO continue atenolol and amlodipine #Lung nodule - seen on CT A/P - recommend chest CT, this can be done outpatient #Cognitive Impairment - Memantine held while NPO Dispo: admit to med/surg DVT proh: SCDs CODE STATUS: DNR/DNI daughter updated at bedside Discharge Exam General: 79yo elderly female resting in bed, NAD Head atraumatic, normocephalic, mmm, trachea midline Resp; even/unlabored, no wheezing/rales, on room air CV: RRR, no significant m/r/g, no pitting edema GI: +BS, soft/NT no gupta MSK/Neuro: nonfocal, answering questions appropriately, not confused Psych: AOx3, cooperative and pleasant with exam Discharge Plan Discharge Items Patient Disposition: Home - Self-Care Reason For Visit: GI BLEED Discharge Diagnosis: Colitis Condition on Discharge: Fair Goals: You have been hospitalized for an acute medical problem. During your stay at [facility], we have made an effort to correct the problem that brought you to the hospital while keeping you as comfortable as possible. Medications were used to bring your condition under control and your discharge instructions will include directions for any medications you should take after leaving the hospital. Please make sure you see your Primary Care Provider as part of your follow up plan. Activity: As commented below Non-emergency contact: Primary Care Provider and Mold Technician Call non-emergency contact if: you have any medication questions, your symptoms worsen, your pain is not controlled, your pain is concerning for you and you have a fever Follow-up/Referrals: Jamari Richardson DO [Physician] - 11/12/24 (6-8 wks for c-scope colonoscopy scheduled on 11/12/24. Office will mail instructions. ) Magdalene Bernard MD [Primary Care Provider] - 09/22/24 1:00 pm (Primary Care hospital follow up scheduled on 09/22/24 at 1:00 with Magdalene Bernard) Diet: Heart Healthy and Low Fiber Addtl Attending Provider Instructions: You have been hospitalized for abdominal pain/vomiting/diarrhea and blood in stool. GI was consulted and imaging was obtained and stool studies were collected. It was suspected you had episode of ISCHEMIC colitis from lack of blood flow which is transient and self resolved and hemoglobin levels have been stable. You have been advanced to a LOW fiber diet and should continue at discharge and follow up with PCP in the next week. Please monitor for any increased bleeding/abdominal pain or fever to return to ER. It has been a pleasure being a part of the medical team providing for you while you have been in the hospital. Take care! Pending Studies at Discharge: No Stand-Alone Forms: My [facility], Smoking Cessation Medications and DC Order Prescriptions: New pantoprazole 40 mg Tablet,Delayed Release (Dr/Ec) 40 mg PO BID Qty: 28 0RF Continued Prolia 60 mg/mL syringe 60 mg subcut Q6MO Qty: 1 1RF atenolol 100 mg tablet 100 mg PO DAILY Qty: 90 3RF amlodipine 5 mg tablet 5 mg PO BID Qty: 180 3RF pravastatin 20 mg tablet 20 mg PO DAILY Qty: 90 3RF calcium carbonate 600 mg calcium (1,500 mg) tablet 600 mg PO DAILY Fish Oil 350-600 mg capsule 1 cap PO DAILY cholecalciferol (vitamin D3) 25 mcg (1,000 unit) capsule 25 mcg PO DAILY aspirin 81 mg tablet,delayed release (DR/EC) 81 mg PO DAILY meclizine 25 mg tablet 25 mg PO BID Qty: 30 0RF memantine 5 mg tablet 0 mg PO BID Rx Instructions: 5 MG FOR 7 DAYS THEN INCREASE TO 10 MG (HASN'T STARTED MEDICATION YET) Discharge Orders: Discharge Order (Routine); Ordered 09/15/24 Ordered By: Cecilia Barnes Admission Data Admit Date/Time: 09/14/24 15:37 Attending Provider: Steven Ren Admit Provider: Yann Salazar Primary Care Provider: Magdalene Bernard Other Providers: Yann Salazar; Santiago Butcher Other Interventions: Discharge Summary Assessment (RN) Last Done: 09/15/24 09:49 Hospital Stay Data Consultations 09/13/24 13:17 ED Decision to Admit Stat 09/13/24 16:47 Consult Gastroenterology Routine Diagnostic Imagining Performed Abdomen/Pelvis CT 09/13/24 11:[address] WITH IV CONTRAST CT DOSE: 360.48 mGy.cm HISTORY: abd pain TECHNIQUE: Multiaxial CT images of the abdomen and pelvis were performed following the IV administration of 90 cc of Optiray, A dose lowering technique was utilized adhering to the principles of ALARA. COMPARISON STUDY: None FINDINGS: There is a moderate hiatal hernia. There is a 6 mm pulmonary nodule lateral left lung base. ABDOMEN: Liver, gallbladder, spleen, pancreas, and adrenal glands are unremarkable. There are a few small cysts at the kidneys. There is no hydronephrosis. There are scattered atherosclerotic calcifications. No abdominal aortic aneurysm. Pelvis: Uterus is absent. No adnexal mass. Urinary bladder is nondistended. There is sigmoid diverticulosis. No acute diverticulitis. There is diffuse wall thickening and inflammation at the left colon. No other bowel and summation or obstruction. Normal appendix. No free fluid, free air, or abscess. No enlarged adenopathy. Osseous structures: There is mild lumbar degenerative disc disease with grade 1 anterolisthesis of L4 on 5 and L5 on S1. There is moderate chronic appearing height loss at the L1 vertebral body. No acute osseous finding seen. IMPRESSION: 1. Diffuse left-sided colitis. No other acute findings seen. 2. Left lung base pulmonary nodule. Follow-up chest CT is suggested. ACT 112: Positive. There are findings on this exam that require communication between the performing entity and the patient following Patient Test Result Information Act ([place] Act 112) guidelines. The above report was generated using voice recognition software. It may contain grammatical, syntax or spelling errors. Electronically signed by: Aníbal Carballo M.D. 09/13/2024 12:43 PM Mesenteric US 09/15/24 00:00 US duplex mesenteric CLINICAL HISTORY: suspected L sided ischemic colitis COMPARISON STUDY: CT of 09/13/2024 FINDINGS: There is no abdominal aortic aneurysm and the visualized abdominal aorta is widely patent. Celiac and superior mesenteric arteries are widely patent with no increased velocity to suggest significant narrowing. Waveforms are normal. Inferior mesenteric artery is patent. IMPRESSION: No mesenteric artery stenosis seen. ACT 112: Negative or not required by law. Electronically signed by: Aníbal Carballo M.D. 09/15/2024 8:25 AM Discharge Instructions Given to Patient (Per Discharging Provider) You have been hospitalized for abdominal pain/vomiting/diarrhea and blood in stool. GI was consulted and imaging was obtained and stool studies were collected. It was suspected you had episode of ISCHEMIC colitis from lack of blood flow which is transient and self resolved and hemoglobin levels have been stable. You have been advanced to a LOW fiber diet and should continue at discharge and follow up with PCP in the next week. Please monitor for any increased bleeding/abdominal pain or fever to return to ER. It has been a pleasure being a part of the medical team providing for you while you have been in the hospital. Take care! Supervising Physician Co-Signing Physician Notes The patient was not seen by me. The chart was reviewed. Case discussed with CHRISTINE Che. Agree with assessment and plan Total Time Total Time Spent Total Time Spent (In Minutes): 40 Coding Level of Care Code 15910 INP/OBS DISCH >30 MIN Diagnoses Colitis K52.9 GI bleed K92.2 HTN (hypertension) I10 HLD (hyperlipidemia) E78.5 History of paroxysmal supraventricular tachycardia Z86.79 PAOLO (acute kidney injury) N17.9 Chronic kidney disease, stage 3a N18.31
== END 2024-09-15 15:30 | disposition home or self-care (01) | DRG 394 ==
LOC: ED 10:07 → EDINP 10:07 → 3N 16:48 → SUATTDRO 09-14 15:37